=== PATIENT | female | born 1965 ===

== ENCOUNTER 2022-09-16 05:18 | Day surgery (SDC) | payer OTHER ==
[~2022-09-16] VITALS: Ht 149.9 cm; Wt 91.6 kg
[~2022-09-16 05:18] MED LIST: CLONAZEPAM0.5 MG PO; CRESTOR40 MG PO; GABAPENTIN800 M1 PO; GEODON60 MG PO; IRBESARTAN-HCT1 EACH PO; LODINE300 MG PO; METFORMIN HCL500 M3 PO; PRISTIQ ER100 MG PO; WELLBUTRIN XL300 MG PO; ZANAFLEX2 M1 PO
[2022-09-16] MEDS ORDERED: PERCOCET 5-3251 EACH PO (09:11)
== END 2022-09-16 12:30 | disposition home or self-care (01) ==
LOC: CIR.AMB 05:18
PROVIDERS: ATTEND Surgery
DX: C73 Malignant neoplasm of thyroid gland (principal); E06.3 Autoimmune thyroiditis; Z88.2 Allergy status to sulfonamides; Z88.1 Allergy status to other antibiotic agents; Z20.822 Contact with and (suspected) exposure to COVID-19